=== PATIENT | female | born 1960 | race Caucasian/White ===

== ENCOUNTER 2016-08-04 18:14 | Emergency (ER) | payer BC ==
[2016-08-04] MEDS ORDERED: Meclizine TAB* 12.5 MG PO ONE ×6 (19:10→23:00)
[2016-08-04] MEDS ORDERED: NS 0.9% 1000 ML* 1,000 ML IV ONE (19:10)
[2016-08-04 19:35] LABS: Hematocrit 47 % (35-47); Hemoglobin 15.3 g/dl (12.0-16.0); Mean Corpuscular HGB Conc 33 g/dl (31-36); Mean Corpuscular Hemoglobin 31 pg (27-31); Mean Corpuscular Volume 94 fL (80-97); Mean Platelet Volume 9 um3 (7.4-10.4); Red Blood Count 4.99 10^6/ul (4.0-5.4); Red Cell Distribution Width 14 % (10.5-15); White Blood Count 14.5 10^3/ul (3.5-10.8)
[2016-08-04 19:52] LABS: Albumin 4.1 g/dL (3.2-5.2); Calcium 11.6 mg/dL (8.6-10.3); Globulin 3.4 g/dL (2-4); Magnesium 2.1 mg/dL (1.9-2.7); Total Bilirubin 0.9 mg/dL (0.2-1.0); Total Protein 7.5 g/dL (6.4-8.9)
[2016-08-04 19:54] LABS: Troponin I 0.03 ng/mL (<0.04)
[2016-08-04 19:55] LABS: Potassium 4.1 mmol/L (3.5-5.0)
[2016-08-04] MEDS ORDERED: LORazepam INJ* 2 MG/ML 1 ML VIAL IV ONE (20:35)
[2016-08-04 20:41] LABS: TSH (Thyroid Stimulating Horm) 1.27 mcIU/mL (0.34-5.60)
[2016-08-04 21:08] LABS: Urine Bilirubin Negative (Negative); Urine Glucose Negative (Negative); Urine Nitrite Negative (Negative)
--- NOTE | 2016-08-04 21:12 | RAD ---
HISTORY: Dizziness COMPARISONS: None TECHNIQUE: Multiple contiguous axial CT scans were obtained of the head without intravenous contrast. FINDINGS: HEMORRHAGE/INFARCT: There is no hemorrhage or acute infarct. MASSES/SHIFT: There is no mass or shift. EXTRA-AXIAL SPACES: There are no extra-axial fluid collections. SULCI AND VENTRICLES: The sulci and ventricles are normal in size and position for the patient's stated age. CEREBRUM: There are no focal parenchymal abnormalities. BRAINSTEM: There are no focal parenchymal abnormalities. CEREBELLUM: There are no focal parenchymal abnormalities. VESSELS: The vessels are grossly normal. PARANASAL SINUSES: The paranasal sinuses are clear. ORBITS: The orbits are unremarkable. BONES AND SOFT TISSUE: No bone or soft tissue abnormalities are noted. OTHER: None IMPRESSION: NO ACUTE INTRACRANIAL PATHOLOGY.
[2016-08-04] MEDS ORDERED: Iohexol 350* (CONTRAST) 500 ML MDV IV ONE (22:33)
[2016-08-05 00:58] VITALS: BP 140/85
--- NOTE | 2016-08-05 08:07 | RAD ---
CPT II: CPT II Codes: 3100F INDICATION: Vertigo COMPARISON: Noncontrast CT the brain from the same date TECHNIQUE: A CT angiogram of the head and neck was performed with 80 cc of Omnipaque 350. Contiguous axial sections were obtained from the thoracic inlet through the standing rock of [place]. Images were reconstructed in the sagittal, coronal planes and in a 3-D volume rendered format. The distal cervical internal carotid artery diameter is used as the denominater for stenosis measurement. CTA NECK: The common and internal carotid arteries are patent without hemodynamically significant stenosis. Right: Immediately below the carotid bifurcation the common carotid artery measures 7 mm in diameter. Just beyond the bifurcation the internal carotid artery measures 7 mm in diameter. This yields 0% degree stenosis. Left: Immediately below the carotid bifurcation the common carotid artery measures 7 mm in diameter. Just beyond the bifurcation the internal carotid artery measures 7 mm in diameter. This yields 0% degree stenosis. The vertebral arteries are patent without gross abnormality. Along the medial inferior aspect of the right pole of the thyroid there is a 1.7 cm hypodensity. CTA of the brain: The internal carotid, anterior and middle cerebral arteries appear are patent without high grade stenosis or occlusion. The vertebral, basilar and posterior cerebral arteries appear patent without high grade stenosis or occlusion. The standing [place] of [place] is complete with bilateral posterior communicating arteries identified. No focal luminal filling defect, aneurysm or vascular malformation is seen. IMPRESSION: 1. Normal CT angiography of the head and neck. 2. Incidentally noted 1.7 cm hypodensity along the medial aspect of the right pole of the thyroid. As clinically warranted further characterization can be made with nonemergent ultrasound the thyroid.
--- NOTE | 2016-09-13 16:46 | ED ---
Gemma Bolaños Alfonso, scribed for Kashif Pandey MD on 08/04/16 at 1901 . Dizziness - HPI Summary HPI Summary: This patient is a 55 year old female presenting to [facility] c/o dizziness since 3 days ago. The patient reports "never experiencing anything like this before." Symptoms aggravated by ambulation and alleviated by closing her eyes. She reports vomiting, ear ringing, vertigo, lightheadedness, and inability to stand. She has been on the BRAT diet since being told at an urgent care 3 days ago her symptoms were likely secondary to food poisoning. She took Zofran and Tums at 0800 today, but her symptoms did not resolve. She reports PMHx of GERD and tinnitus. - History Of Current Complaint Chief Complaint: EDDizziness Stated Complaint: DIZZINESS,NAUSEA Time Seen by Provider: 08/04/16 18:42 Hx Obtained From: Patient Onset/Duration: Still Present Timing: Days - 3 days Severity Initially: Moderate Severity Currently: Moderate Character: Room Spinning, Lightheaded, Dizzy Aggravating Factor(s): Other - ambulation Alleviating Factor(s): Closing Eyes Associated Signs And Symptoms: Positive: Vomiting, Tinnitus, Other: - Positive inability to stand, vertigo, and lightheadedness - Allergies/Home Medications Allergies/Adverse Reactions: Allergies Allergy/AdvReac Type Severity Reaction Status Date / Time Penicillins [PCN] Allergy Unknown Verified 11/09/15 09:06 Reaction Details PMH/Surg Hx/FS Hx/Imm Hx GI History: Reports: Hx Gastroesophageal Reflux Disease Sensory History: Denies: Hx Deafness Opthamlomology History: Denies: Hx Legally Blind EENT History: Reports: Other - tinnitus Infectious Disease History: No Infectious Disease History: Denies: Traveled Outside the [place] in Last 30 Days - Family History Known Family History: Positive: Hypertension, Diabetes, Other - cancer mother cervical, father colon - Social History Alcohol Use: Daily - once a day Hx Substance Use: No Substance Use Type: Reports: Excessive Caffeine Smoking Status (MU): Former Smoker Review of Systems Positive: Other - Tinnitus Positive: Vomiting Neurological: Other - Positive dizziness, vertigo, lightheadedness, and inability to stand All Other Systems Reviewed And Are Negative: Yes Physical Exam Triage Information Reviewed: Yes Vital Signs On Initial Exam: Initial Vitals Temp Pulse Resp BP Pulse Ox 97.1 F 64 20 173/110 100 08/04/16 18:22 08/04/16 18:22 08/04/16 18:22 08/04/16 18:22 08/04/16 18:22 Vital Signs Reviewed: Yes Appearance: Positive: Well-Appearing, No Pain Distress, Obese Skin: Positive: Warm, Skin Color Reflects Adequate Perfusion, Dry Head/Face: Positive: Normal Head/Face Inspection Eyes: Positive: Other: - Nystagmus fast component to the left with fatigue ENT: Positive: Normal ENT inspection Neck: Positive: Supple, Nontender Respiratory/Lung Sounds: Positive: Clear to Auscultation, Breath Sounds Present Cardiovascular: Positive: RRR Abdomen Description: Positive: Nontender, Soft Bowel Sounds: Positive: Present Musculoskeletal: Positive: Normal Neurological: Positive: Normal, Sensory/Motor Intact, Alert, Oriented to Person Place, Time, CN Intact II-III Psychiatric: Positive: Normal Diagnostics - Vital Signs Vital Signs Temp Pulse Resp BP Pulse Ox 08/04/16 18:24 97.3 F 61 20 173/110 99 08/04/16 18:22 97.1 F 64 20 173/110 100 - Laboratory Lab Results: Lab Results 08/04/16 08/04/16 08/04/16 Range/Units 19:26 19:26 19:26 WBC 14.5 H (3.5-10.8) 10^3/ul RBC 4.99 (4.0-5.4) 10^6/ul Hgb 15.3 (12.0-16.0) g/dl Hct 47 (35-47) % MCV 94 (80-97) fL MCH 31 (27-31) pg MCHC 33 (31-36) g/dl RDW 14 (10.5-15) % Plt Count 232 (150-450) 10^3/ul MPV 9 (7.4-10.4) um3 Neut % (Auto) 81.5 (38-83) % Lymph % (Auto) 11.0 L (25-47) % [place] % (Auto) 7.1 (1-9) % Eos % (Auto) 0 (0-6) % Baso % (Auto) 0.4 (0-2) % Absolute Neuts (auto) 11.8 H (1.5-7.7) 10^3/ul Absolute Lymphs (auto) 1.6 (1.0-4.8) 10^3/ul Absolute Monos (auto) 1.0 H (0-0.8) 10^3/ul Absolute Eos (auto) 0 (0-0.6) 10^3/ul Absolute Basos (auto) 0.1 (0-0.2) 10^3/ul Absolute Nucleated RBC 0 10^3/ul Nucleated RBC % 0 Sodium 137 (133-145) mmol/L Potassium 4.1 (3.5-5.0) mmol/L Chloride 102 (101-111) mmol/L Carbon Dioxide 27 (22-32) mmol/L Anion Gap 8 (2-11) mmol/L BUN 17 (6-24) mg/dL Creatinine 0.85 (0.51-0.95) mg/dL Est GFR ( Amer) 90.0 (>60) Est GFR (Non-Af Amer) 70.0 (>60) BUN/Creatinine Ratio 20.0 (8-20) Glucose 132 H (70-100) mg/dL Lactic Acid 1.6 (0.5-2.0) mmol/L Calcium 11.6 H (8.6-10.3) mg/dL Magnesium 2.1 (1.9-2.7) mg/dL Total Bilirubin 0.90 (0.2-1.0) mg/dL AST 23 (13-39) U/L ALT 22 (7-52) U/L Alkaline Phosphatase 69 (34-104) U/L Troponin I 0.03 (<0.04) ng/mL Total Protein 7.5 (6.4-8.9) g/dL Albumin 4.1 (3.2-5.2) g/dL Globulin 3.4 (2-4) g/dL Albumin/Globulin Ratio 1.2 (1-3) TSH 1.27 (0.34-5.60) mcIU/mL Urine Color Urine Appearance Urine pH (5-9) Ur Specific [place] (1.010-1.030) Urine Protein (Negative) Urine Ketones (Negative) Urine Blood (Negative) Urine Nitrate (Negative) Urine Bilirubin (Negative) Urine Urobilinogen (Negative) Ur Leukocyte Esterase (Negative) Urine Glucose (Negative) 08/04/16 Range/Units 20:52 WBC (3.5-10.8) 10^3/ul RBC (4.0-5.4) 10^6/ul Hgb (12.0-16.0) g/dl Hct (35-47) % MCV (80-97) fL MCH (27-31) pg MCHC (31-36) g/dl RDW (10.5-15) % Plt Count (150-450) 10^3/ul MPV (7.4-10.4) um3 Neut % (Auto) (38-83) % Lymph % (Auto) (25-47) % [place] % (Auto) (1-9) % Eos % (Auto) (0-6) % Baso % (Auto) (0-2) % Absolute Neuts (auto) (1.5-7.7) 10^3/ul Absolute Lymphs (auto) (1.0-4.8) 10^3/ul Absolute Monos (auto) (0-0.8) 10^3/ul Absolute Eos (auto) (0-0.6) 10^3/ul Absolute Basos (auto) (0-0.2) 10^3/ul Absolute Nucleated RBC 10^3/ul Nucleated RBC % Sodium (133-145) mmol/L Potassium (3.5-5.0) mmol/L Chloride (101-111) mmol/L Carbon Dioxide (22-32) mmol/L Anion Gap (2-11) mmol/L BUN (6-24) mg/dL Creatinine (0.51-0.95) mg/dL Est GFR ( Amer) (>60) Est GFR (Non-Af Amer) (>60) BUN/Creatinine Ratio (8-20) Glucose (70-100) mg/dL Lactic Acid (0.5-2.0) mmol/L Calcium (8.6-10.3) mg/dL Magnesium (1.9-2.7) mg/dL Total Bilirubin (0.2-1.0) mg/dL AST (13-39) U/L ALT (7-52) U/L Alkaline Phosphatase (34-104) U/L Troponin I (<0.04) ng/mL Total Protein (6.4-8.9) g/dL Albumin (3.2-5.2) g/dL Globulin (2-4) g/dL Albumin/Globulin Ratio (1-3) TSH (0.34-5.60) mcIU/mL Urine Color Yellow Urine Appearance Cloudy Urine pH 7.0 (5-9) Ur Specific [place] 1.012 (1.010-1.030) Urine Protein Negative (Negative) Urine Ketones Trace H (Negative) Urine Blood Negative (Negative) Urine Nitrate Negative (Negative) Urine Bilirubin Negative (Negative) Urine Urobilinogen Negative (Negative) Ur Leukocyte Esterase Negative (Negative) Urine Glucose Negative (Negative) Result Diagrams: 08/04/16 19:26 08/04/16 19:26 Lab Statement: Any lab studies that have been ordered have been reviewed, and results considered in the medical decision making process. - CT Brain CT CT Interpretation: No Acute Changes - NO ACUTE INTRACRANIAL PATHOLOGY. CT Interpretation Completed By: Radiologist CTA Head/Neck CT Interpretation Completed By: Radiologist - pending official reading, waiting radiologist's dispo - EKG 1916 Cardiac Rate: Bradycardia - BPM 54 EKG Rhythm: Sinus Rhythm Re-Evaluation - Re-Evaluation First Eval Re-Evaluation Time: 20:33 Change: Improved Comment: She feels slightly better after medication. Second Eval Re-Evaluation Time: 22:15 Change: Improved Comment: The patient's symptoms are improved. Dizzy Course/Dx - Course Course Of Treatment: Ms. Sinclair presented with a history of getting nauseated and vomiting and feeling very dizzy on sunday night. She felt nauseated yesterday and then today is very dizzy with the feeling that everything is spinning especially when she moves. Closing her eyes helps. She has chronic tinnitus. She improeved some with meclizine and then almost completely with ativan. Dr. Brar recommended a CTA and if that is negative I anticipate her going home with symptomatic treatment. - Diagnoses Provider Diagnoses: Vertigo - Provider Notifications Discussed Care Of Patient With: Marija Brar Time Discussed With Above Provider: 22:23 Instructed by Provider To: Other - Consulted Dr. Brar (Neurologist) who recommends a CTA. Discharge - Discharge Plan Condition: Stable Disposition: HOME Prescriptions: Meclizine TAB* [Antivert 12.5 TAB*] 25 mg PO TID PRN #20 tab PRN Reason: Dizziness Patient Education Materials: Meclizine (By mouth), Vertigo (ED) Referrals: Farshad Holden MD [Primary Care Provider] - Additional Instructions: Follow up with your Primary Care Provider. The documentation as recorded by the Gemma sinha Alfonso accurately reflects the service I personally performed and the decisions made by me, Kashif Pandey MD.
== END 2016-08-05 00:57 | disposition home or self-care (01) ==
LOC: ED 18:14
DX: R42 Dizziness and giddiness (principal); R11.10 Vomiting, unspecified; H93.19 Tinnitus, unspecified ear; Z87.891 Personal history of nicotine dependence
CPT/HCPCS: 36415; 70450; 70496; 70498; 80053; 81003; 83605; 83735; 84443; 84484; 85025; 93005; 96374; 99284; A9270-GY; J2060; Q9967